=== PATIENT | female | born 1970 | race Caucasian/White ===

== ENCOUNTER 2019-07-06 06:05 | Day surgery (SDC) | payer BC, OTHER ==
[2019-07-04 15:54] VITALS: BMI 26.4
[2019-07-06] MEDS ORDERED: LIDOCAINE 1%-EPI 1:100,000 30 ML MDV IJ ONE (07:23)
[2019-07-06] MEDS ORDERED: BUPIVACAINE HCL/PF 0.5% (5 MG/ML) 30 ML VIAL IJ ONE ×3 (07:23→08:22)
[2019-07-06] MEDS ORDERED: LIDOCAINE HCL 1%, 10 MG/ML (20ML VIAL) ONE (07:23)
[2019-07-06] MEDS ORDERED: LIDOCAINE HCL/PF 2% SDV 5ML VIAL ONE (08:09)
[2019-07-06] MEDS ORDERED: PROPOFOL 20 ML ONE (08:10)
[2019-07-06] MEDS ORDERED: MIDAZOLAM HCL 2 MG/2 ML SINGLE DOSE VIAL ONE (08:10)
[2019-07-06] MEDS ORDERED: LIDOCAINE 1%/EPI 1:100000 (20 ML MULTI DOSE VIAL) IJ ONE (08:25)
[2019-07-06] MEDS ORDERED: DEXAMETHASONE SOD PHOSPHATE 4 MG/1 ML VIAL ONE (08:26)
[2019-07-06] MEDS ORDERED: KETOROLAC TROMETHAMINE 30 MG/1 ML VIAL ONE (08:35)
--- NOTE | 2019-07-06 08:51 | HP ---
Satellite PMH - Chief Complaint Chief Complaint: right knee pain - Past Medical History Allergies/Adverse Reactions: Allergies Allergy/AdvReac Type Severity Reaction Status Date / Time tree and shrub pollen Allergy Intermediate Verified 07/04/19 15:39 cat dander Allergy Verified 07/04/19 15:39 No Known Drug Allergies Allergy Verified 07/04/19 15:39 ...LMP: 07/03/19 - Current Medications Current Medications: Home Medications Medication Instructions Recorded Fexofenadine/Pseudoephedrine 1 each PO DAILY 02/21/16 [Flor-D 24 Hour Tablet] Calcium/Soy/Cohosh/Melatonin 1 each PO HS 02/25/16 [Estroven Nighttime Caplet] Glucosamine/Chondr Barron A Sod [Osteo 1 each PO DAILY 07/04/19 Bi-Flex Caplet] Oxycodone HCl/Acetaminophen 1 tab PO Q6H #20 tablet MDD 4 07/06/19 [Percocet 5-325 mg Tablet] Satellite Physical Exam - Physical Examination Vital Signs: Vital Signs Period Temp Pulse Resp BP Sys/Gloria Pulse Ox Last 24 Hr 97.6 F 66 20 107/61 99 General Appearance: Well Nourished, Well Developed, Alert & Oriented x3 ENT: Clear Lung: Normal air movement Extremities: Other (right knee- + swelling, + ttp, dec rom, nvi, MRI + mmt) Neurological: Intact, Alert, Oriented Satellite Impression/Plan - Impression/Plan Impression: right knee internal derangement Operative Procedure: right knee arthroscopy with PMM Date to be Performed: 07/06/19
--- NOTE | 2019-07-06 08:53 | OP ---
Operative Note - Note: Operative Date: 07/06/19 ([facility] Pre-Operative Diagnosis: right knee internal derangement Operation: right knee arthroscopy with PMM Post-Operative Diagnosis: Same as Pre-op Surgeon: John Blanchard Anesthesiologist/PIPE INSPECTOR: Edna Diaz Anesthesia: General, Local Specimens Removed: shavings Estimated Blood Loss (mls): 5
[2019-07-06] MEDS ORDERED: ONDANSETRON 4 MG/2 ML VIAL IVPUSH PRN (09:46)
[2019-07-06] MEDS ORDERED: oxyCODONE HCL 5 MG TABLET PO PRN (09:46)
[2019-07-06] MEDS ORDERED: LACTATED RINGERS SOLUTION 1,000 ML IV SCH (10:00)
--- NOTE | 2019-07-06 10:20 | SPEC ---
DATE OF OPERATION: 07/06/2019 PREOPERATIVE DIAGNOSIS: Internal derangement, right knee. POSTOPERATIVE DIAGNOSIS: Internal derangement, right knee. PROCEDURE: Arthroscopy right knee, partial medial meniscectomy. SURGICAL ATTENDING: John Blanchard MD PRESSURE CONTROL SUPERVISOR: No assistant branch manager. ANESTHESIA: General with LMA. CLOSURE: 4-0 nylon. COMPLICATIONS: None. CONDITION: To recovery room in stable condition. DESCRIPTION OF OPERATIVE PROCEDURE: Patient was taken to the operating room on July 06, 2019. General anesthesia with LMA was administered by the anesthesiologist. The right lower extremity was prepped and draped in the usual sterile fashion. The medial and lateral infrapatellar portal sites were infiltrated with 1% Xylocaine with epinephrine. Both portals were then made with a 15 blade followed by a blunt trocar. The scope was placed in the lateral infrapatellar portal and up into the suprapatellar pouch. The knee was inflated with a cocktail of 10 mL of 1% Xylocaine, 10 mL of 0.5% Marcaine, and 20 mL of arthroscopic saline. This was allowed to sit in the knee for a few minutes to allow the anesthetic to work intraarticularly. The scope was placed in the lateral infrapatellar portal and up into the suprapatellar pouch. The pouch was visualized to be clean. The medial and lateral gutters were visualized to be clean. The undersurface of the patella and trochlea were visualized to be intact. With valgus stress on the knee, the medial compartment was entered. The medial meniscus was visualized, probed, and found to have a complex tear of the posterior horn. This was debrided back to smooth stable meniscal tissue using a meniscal biter and arthroscopic shaver. The medial femoral condyle was run and found to be intact as well as the medial tibial plateau. At 90 degrees, the ACL was visualized, probed, and found to be intact. In the figure 4 position, the lateral compartment was entered. The lateral meniscus was visualized, probed, and found to be intact. The lateral femoral condyle was run and found to be intact as was the lateral tibial plateau. The knee was irrigated with copious amounts of irrigation and then the fluid was drained. The inferomedial portal was closed then with 4-0 nylon. Prior to pulling the trocar from the lateral infrapatellar portal, 20 mL of 0.5% Marcaine was infused into the knee for postoperative analgesia. The trocar was then pulled and the incision was closed with 4-0 nylon suture. A sterile pressure dressing was applied. Patient awakened from anesthesia and transferred to recovery in stable condition. No complication. Estimated blood loss negligible. Imtiaz REEDER/[id number]
[2019-07-06 11:24] VITALS: BP 132/66; PULSE 76; TEMP 97.8
--- NOTE | 2019-07-08 19:02 | PATH ---
Surgical Pathology Report Patient Name: MARYAN CRABTREE [facility]. Rec. #: [id number] /Age/Gender: 1970 (Age: 49) / F Account: [id number] Location: [facility] Taken: 07/06/2019 Received: 07/06/2019 Reported: 07/08/2019 Physicians: John Blanchard M.D. Specimen(s) Received KNEE SHAVINGS, RIGHT Clinical History Right knee tear Final Diagnosis KNEE SHAVINGS, RIGHT, ARTHROSCOPY: FRAGMENTS OF CARTILAGE, DENSE FIBROCONNECTIVE TISSUE, ADIPOSE TISSUE, AND SYNOVIUM. Electronically Signed Soheila Freire M.D. Gross Description Received in formalin, labeled "right knee shavings," is a 4.0 x 3.0 x 0.3 cm. aggregate of shetty-yellow soft tissue fragments. A security representative portion is submitted in one cassette. /07/06/2019 saudi07/06/2019
== END 2019-07-06 11:28 | disposition home or self-care (01) ==
LOC: JASU-SURG 06:05
PROVIDERS: ATTEND Orthopaedic Surgery
PROC: 0SBC4ZZ Excision of Right Knee Joint, Percutaneous Endoscopic Approach (ICD-10-PCS; principal; 2019-07-06 08:00)
DX: M23.221 Derangement of posterior horn of medial meniscus due to old tear or injury, right knee (principal)
CPT/HCPCS: 84703; 88304-TC; 94760

== ENCOUNTER 2021-01-07 08:34 | Emergency (ER) | payer OTHER ==
[2021-01-07 08:51] VITALS: BP 122/84; PULSE 74; TEMP 98.2; BMI 25.2
[2021-01-07] MEDS ORDERED: IBUPROFEN 400 MG TABLET (FP) PO ONE ×2 (09:09→09:26)
== END 2021-01-07 10:43 | disposition home or self-care (01) ==
LOC: JER 08:34
DX: S83.92XA Sprain of unspecified site of left knee, initial encounter (principal)
CPT/HCPCS: 73562-TC-LT-FY; 99284-25

== ENCOUNTER 2021-04-12 04:22 | Day surgery (SDC) | payer OTHER ==
[2021-04-09 14:54] VITALS: BMI 25.2
[~2021-04-12 04:22] MED LIST: ceFAZolin SODIUM 1 GM VIAL IVPB ONE
[2021-04-12] MEDS ORDERED: ONDANSETRON 4 MG/2 ML VIAL IVPUSH PRN (10:58)
[2021-04-12] MEDS ORDERED: BUPIVACAINE HCL/PF 0.5% (5MG/ML) 10 ML VIAL ONE (10:58)
[2021-04-12] MEDS ORDERED: BUPIVACAINE LIPOSOME/PF (EXPAREL) 266 MG/20 ML VIAL ONE (10:58)
[2021-04-12] MEDS ORDERED: oxyCODONE HCL 5 MG TABLET PO PRN (10:58)
[2021-04-12] MEDS ORDERED: MIDAZOLAM HCL 2 MG/2 ML SINGLE DOSE VIAL ONE ×2 (10:59)
[2021-04-12] MEDS ORDERED: SODIUM CHLORIDE 0.9% P/F 10 ML VIAL IJ ONE (10:59)
[2021-04-12] MEDS ORDERED: LACTATED RINGERS SOLUTION 1,000 ML IV SCH (11:00)
[2021-04-12] MEDS ORDERED: PROPOFOL 20 ML ONE (11:53)
[2021-04-12] MEDS ORDERED: ceFAZolin SODIUM 1 GM VIAL ONE (12:02)
[2021-04-12] MEDS ORDERED: ceFAZolin SODIUM 1 GM VIAL IVPB ONE (12:06)
[2021-04-12] MEDS ORDERED: DEXAMETHASONE SOD PHOSPHATE 4 MG/1 ML VIAL ONE (12:09)
[2021-04-12] MEDS ORDERED: ONDANSETRON 4 MG/2 ML VIAL ONE (12:09)
[2021-04-12] MEDS ORDERED: MEPERIDINE HCL 25 MG/ML VIAL ONE (13:05)
[2021-04-12] MEDS ORDERED: MEPERIDINE HCL 25 MG/ML VIAL IVPUSH ONE (13:40)
[2021-04-12 16:40] VITALS: BP 124/75; PULSE 78; TEMP 97.8
== END 2021-04-12 16:15 | disposition home or self-care (01) ==
LOC: JASU-SURG 04:22
PROVIDERS: ATTEND Orthopaedic Surgery
PROC: 0MRP47Z Replacement of Left Knee Bursa and Ligament with Autologous Tissue Substitute, Percutaneous Endoscopic Approach (ICD-10-PCS; principal; 2021-04-12 11:30)
DX: S83.512A Sprain of anterior cruciate ligament of left knee, initial encounter (principal); X58.XXXA Exposure to other specified factors, initial encounter; Y93.9 Activity, unspecified; Y92.9 Unspecified place or not applicable
CPT/HCPCS: 81025; 94760